=== PATIENT | male | born 2000 ===

== ENCOUNTER 2025-08-13 15:31 | Emergency (ER) | payer SELFPAY ==
[2025-08-13] MEDS ORDERED: Boostrix 0.5 ML (Tdap) VIAL (>/=7 yrs of age) ONE (16:31)
== END 2025-08-13 16:44 | disposition home or self-care (01) ==
LOC: ERS 15:31
DX: S71.152A Open bite, left thigh, initial encounter (principal); S80.811A Abrasion, right lower leg, initial encounter; Z23 Encounter for immunization; W54.0XXA Bitten by dog, initial encounter
CPT/HCPCS: 90471; 90715